=== PATIENT | male | born 2000 | race Two or more races ===

== ENCOUNTER 2019-02-09 13:10 | Emergency (ER) | payer MEDICAID ==
[~2019-02-09] VITALS: Ht 167.6 cm; Wt 59.0 kg
[~2019-02-09 13:10] MED LIST: CALPRATL TP; DIPH12.5EL PO; IBUP600 PO; PRED10 PO; SULTRIDS PO
[2019-02-09] MEDS ORDERED: Bactrim Ds Tab1 EACH PO (14:25)
[2019-02-09] MEDS ORDERED: CEPH500 PO (14:25)
== END 2019-02-09 14:45 | disposition home or self-care (01) ==
LOC: ER 13:10
DX: L02.214 Cutaneous abscess of groin (principal)
CPT/HCPCS: 10060; 99282-25

== ENCOUNTER 2020-02-18 23:43 | Emergency (ER) | payer OTHER ==
[~2020-02-18] VITALS: Ht 162.6 cm; Wt 59.0 kg
[~2020-02-18 23:43] MED LIST changes: +Bactrim Ds Tab1 EACH PO; +CEPH500 PO
[2020-02-19] MEDS ORDERED: Cleocin HCl300 MG PO (00:17)
[2020-02-19] MEDS ORDERED: IBUP600 PO (00:17)
== END 2020-02-19 00:30 | disposition home or self-care (01) ==
LOC: ER 23:43
DX: K02.9 Dental caries, unspecified (principal); Z87.891 Personal history of nicotine dependence
CPT/HCPCS: 96372; 99282; A9270; J1885

== ENCOUNTER 2020-12-11 15:47 | Emergency (ER) | payer OTHER ==
[~2020-12-11] VITALS: Ht 165.1 cm; Wt 64.4 kg
[~2020-12-11 15:47] MED LIST changes: +Cleocin HCl300 MG PO
== END 2020-12-11 17:21 | disposition home or self-care (01) ==
LOC: ER 15:47
DX: S60.212A Contusion of left wrist, initial encounter (principal); Z87.891 Personal history of nicotine dependence; V02.99XA Pedestrian with other conveyance injured in collision with two- or three-wheeled motor vehicle, unspecified whether traffic or nontraffic accident, initial encounter; Y92.410 Unspecified street and highway as the place of occurrence of the external cause
CPT/HCPCS: 29125; 73120; 99283-25; A9270

== ENCOUNTER 2021-02-22 21:53 | Emergency (ER) | payer OTHER ==
[~2021-02-22] VITALS: Ht 162.6 cm; Wt 59.0 kg
== END 2021-02-23 01:49 | disposition left against medical advice (07) ==
LOC: ER 21:53
DX: R56.9 Unspecified convulsions (principal); Z53.21 Procedure and treatment not carried out due to patient leaving prior to being seen by health care provider
CPT/HCPCS: 93005; 93010

== ENCOUNTER 2022-02-18 16:46 | Emergency (ER) | payer OTHER ==
[~2022-02-18] VITALS: Ht 162.6 cm; Wt 59.0 kg
[2022-02-18] MEDS ORDERED: HYDR1TAB94 PO (18:12)
[2022-02-18] MEDS ORDERED: AMOCLA875 PO (18:12)
== END 2022-02-18 18:19 | disposition home or self-care (01) ==
LOC: ER 16:46
DX: K08.89 Other specified disorders of teeth and supporting structures (principal); Z87.891 Personal history of nicotine dependence
CPT/HCPCS: A9270

== ENCOUNTER 2022-04-17 15:39 | Emergency (ER) | payer OTHER ==
[~2022-04-17] VITALS: Ht 162.6 cm; Wt 60.8 kg
[~2022-04-17 15:39] MED LIST changes: +AMOCLA875 PO; +HYDR1TAB94 PO
== END 2022-04-17 16:32 | disposition home or self-care (01) ==
LOC: ER 15:39
DX: S00.01XA Abrasion of scalp, initial encounter (principal); W22.8XXA Striking against or struck by other objects, initial encounter; F17.290 Nicotine dependence, other tobacco product, uncomplicated; Z23 Encounter for immunization
CPT/HCPCS: 90714

== ENCOUNTER 2023-08-25 00:57 | Observation (INO) | payer OTHER ==
[~2023-08-25] VITALS: Ht 160 cm; Wt 61.5 kg
[2023-08-25 02:00] LABS: BASOPHILS ABSOLUTE AUTO 0.06 K/mm3 (0.00-0.23); BASOPHILS PERCENT AUTO 1 % (0-2); EOSINOPHILS ABSOLUTE AUTO 0.13 K/mm3 (0.00-0.68); EOSINOPHILS PERCENT AUTO 1 % (0-6); Hematocrit 46.6 % (37.0-53.0); Hemoglobin 15.4 g/dL (13.5-17.5); IMMATURE GRAN ABSOLUTE AUTO 0.06 K/mm3 (0.00-0.10); IMMATURE GRAN PERCENT AUTO 1 % (0-1); LYMPHOCYTES ABSOLUTE AUTO 2.56 K/mm3 (0.84-5.20); LYMPHOCYTES PERCENT AUTO 25 % (21-46); MONOCYTES ABSOLUTE AUTO 1.01 K/mm3 (0.16-1.47); MONOCYTES PERCENT AUTO 10 % (4-13); Mean Corpuscular HGB 31.4 pg (26.0-34.0); Mean Corpuscular Volume 95 fL (80-100); Mean Platelet Volume 9.7 fL (9.1-12.4); NEUTROPHILS ABSOLUTE AUTO 6.54 K/mm3 (1.96-9.15); NEUTROPHILS PERCENT AUTO 63 % (41-73); Platelet Count 247 K/mm3 (150-400); RDW Coefficient Variation 12.4 % (11.7-14.2); RDW Standard Deviation 43.6 fL (35.1-46.3); Red Blood Cell Count 4.91 M/mm3 (4.30-5.90); White Blood Cell Count 10.36 K/mm3 (4.00-11.30)
[2023-08-25 02:07] LABS: Albumin/Globulin Ratio 1.3 (0.8-1.8); Bilirubin, Total 0.3 mg/dL (0.1-1.0); Bun/Creatinine Ratio 16.8 (12.0-20.0); Calcium, Blood 8.2 mg/dL (8.5-10.1); Creatinine, Blood 0.72 mg/dL (0.60-1.20); Globulin, Blood 3.1 g/dL (2.2-4.0); Magnesium, Blood 2.5 mg/dL (1.6-2.4); Potassium, Blood 3.9 mmol/L (3.5-5.5); Prolactin 9.5 ng/mL (2.5-17.4); Total Protein, Blood 7.1 g/dL (6.4-8.2)
[2023-08-25 02:23] LABS: Source, Urine Clean Catch
[2023-08-25 02:29] LABS: Bilirubin, Urine Neg (Neg); Blood, Urine Neg (Neg); Glucose Qualitative, Urine Neg (Neg); Ketones, Urine Neg (Neg); Leukocyte Esterase, Urine Neg (Neg); Nitrite, Urine Neg (Neg); Protein, Urine Neg (Neg); Urobilinogen, Urine NORM (Normal); pH, Urine 6.5 (5.0-8.0)
[2023-08-25 02:30] LABS: Appearance, Urine Clear (Clear); Color, Urine Yellow (P-Yellow)
[2023-08-25 02:45] LABS: U Amphetamine Screen Not Detected; U Barbituate Screen Not Detected; U Benzodiazapine Screen Not Detected; U Buprenorphine Screen Not Detected; U Cannabinoids Screen DETECTED; U Cocaine Screen Not Detected; U Methadone Screen Not Detected; U Methamphetamine Screen Not Detected; U Opiates Screen Not Detected; U Oxycodone Screen Not Detected; U Phencyclidine Screen Not Detected
[2023-08-25 08:14] VITALS: BP 113/73
[2023-08-25 16:02] VITALS: BP 115/69
--- NOTE | 2023-08-25 16:53 | NUR ---
SHIFT SUMMARY: PATIENT A/OX4, SLOW TO RESPOND AND SOFT SPOKEN WHEN HE TALKS. OTHERWISE, VERY QUITE AND RESSERVED. PATIENT DENIES CP/PRESSURE, SOB, AND DIZZINESS. PATIENT REPORTS HEADACHE AND VOMITING, MEDICATED c PRN NAUSEA MEDS c GOOD EFFECT. PATIENT HAD OT EPISODE OF SEIZURES WITNESS BY PATIENT AUNT AND DR. SANCHEZ NOTIFIED THIS RN. BY THE TIME THIS RN CHECK AND ASSESS THE PATIENT, SEIZURE WAS RESSOLVED. PATIENT IS AWAKE, ALERT AND REPORTS HEADACHE, MEDICATED c PRN IV VALIUM c GOOD EFFECT AND SLEPT FOR ABOUT 2.5 HRS. FEBRILE 101.2 TAKEN TEMPORAL AND WAS RECHECKED ORALLY AND WAS 100.3. PATIENT MEDICATED c PRN PO TYLENOL AND TEMP DOWN TO 98.8. PATIENT RECEIVED ONE DOSE OF IV KEPPRA AND ONE DOSE OF IV VIMPAT THIS SHIFT. PATIENT AUNT (MARISABEL) AT BEDSIDE STAYED c PATIENT MAJORITY OF THIS SHIFT AND VERY INVOLVED ON PATIENT CARE. PER MARISABEL "PATIENT IS GOING THROUGH A LOT OF STRESS AT HOME HE IS BATTLING c KIDS CUSTODY AND A CLOSED RELATIVES ON STAGE 4 CANCER." MARISABEL FILLED OUT AN ADVANCE DIRECTIVE FORMS AND PLACED IN FRONT OF PATIENT CHART. VITAL SIGNS REVIEWED. PIV TO L FOREARM SALINE LOCKED. CALL LIGHT IN REACH
--- NOTE | 2023-08-25 18:08 | NUR ---
NOTE: PATIENT HAS BEEN DENYING CP/PRESSURE ALL DAY. AT AROUND 1810, PATIENT AUNT (MARISABEL) AT BEDSIDE, REPORTS TO THIS RN THAT PATIENT IS HAVING CP AND REQUESTING TO PLACED PATIENT ON TELEMETRY TO MONITOR HIS HR. THIS RN ASSESS THE PATIENT AND TO DESCRIBED THE PAIN LIKE. PATIENT COULD NOT TELL THIS RN ANY WORDS. VITAL SIGNS TAKEN; BP 112/71, HR 91 BPM, RR 19 BPM, O2 95% AND TEMP OF 99.6. THE PATIENT AUNT AT BEDSIDE DOES ALL THE TALKING AND REPORTS ALL THE PATIENT SYMPTOMS. PATIENT IS AWAKE AND LAYING IN BED. THIS RN NOTIFIED DR. SANCHEZ REGARDING THIS CONCERNED. DR SANCHEZ CAME SAW THE PATIENT AND SPOKE TO AUNT AT BEDSIDE. 10 MINS LATER, THIS RN WAS NOTIFIED BY [employer] ED[employer] PER FAMILY MEMBER PATIENT HAD ANOTHER EPISODE OF SIEZURE, BY THE TIME THIS RN MADE IT TO PATIENT ROOM PATIENT SEIZURE WAS RESSOLVED. PATIENT AUNT IS REQUESTING TO HAVE A SECOND OPINION AND REQUESTING TO THIS RN TO TRANSFERRED PATIENT TO DIFFERENT HOSPITAL. NOTIFIED DR. SANCHEZ c THIS REQUEST. DR SANHCEZ CAME BACK AND SPOKE TO PATIENT AUNT IN ROOM AND CLARIFIED THE REQUEST. PER DR. SANCHEZ TO FAMILY MEMBER HE WILL START THE PROCESS.
[2023-08-25 18:13] VITALS: BP 112/71
[2023-08-25 20:11] VITALS: BP 118/62
[2023-08-25 20:33] VITALS: BP 118/62
--- NOTE | 2023-08-26 05:26 | NUR ---
SHIFT SUMMARY/XFER THA WAS ALERT AND FULLY ORIENTED AT THE START OF THE SHIFT AND WITH FAMILY. PRIOR TO THIS SHIFT PT HAD REQUESTED TRANSFER TO ANOTHER HOSPITAL. AT TIME OF ASSESSMENT PT DENIED C/P/PRESSURE, AND SOB. PT WAS UNDER MY CARE UNTIL 2319 WHEN HE GOT PICKED UP AND TRANSFERRED TO [facility]. WHILE UNDER MY CARE PT HAD NO SEIZURES, CHANGES IN CONDITION, OR ACUTE EVENTS. REPORT CALLED TO VIET @ [facility].
== END 2023-08-25 23:24 | disposition short-term general hospital (02) ==
LOC: ER 00:57 → MEDS 00:58
PROVIDERS: Student in an Organized Health Care Education/Training Program; ADMIT Internal Medicine
DX: R56.9 Unspecified convulsions (principal); G43.909 Migraine, unspecified, not intractable, without status migrainosus; Z72.0 Tobacco use; G93.0 Cerebral cysts
CPT/HCPCS: 70450; 70553; 80053; 81003; 82947; 83735; 84146; 85025; 93005; 93010; 96365-59; 96366; 96372; 96375; 96375-59; 96376; 99285-25; A9270; A9579; C9254; G0378; J1650; J1885; J1953; J2405; J2765; J3360

== ENCOUNTER 2024-06-15 12:54 | Emergency (ER) | payer OTHER ==
[~2024-06-15] VITALS: Ht 170.2 cm; Wt 68.0 kg
[~2024-06-15 12:54] MED LIST changes: +LEVE500 PO
[2024-06-15 12:59] VITALS: BP 119/69
[2024-06-15] MEDS ORDERED: Bactrim Ds Tab1 EACH PO (13:20)
[2024-06-15] MEDS ORDERED: CEPH500 PO (13:20)
[2024-06-15] MEDS ORDERED: PROM25 PO (13:20)
== END 2024-06-15 13:28 | disposition home or self-care (01) ==
LOC: ER 12:54
DX: L08.9 Local infection of the skin and subcutaneous tissue, unspecified (principal); R11.2 Nausea with vomiting, unspecified; Z79.899 Other long term (current) drug therapy
CPT/HCPCS: 99283

== ENCOUNTER 2024-06-24 14:40 | Emergency (ER) | payer OTHER ==
[~2024-06-24] VITALS: Ht 160 cm; Wt 56.7 kg
[~2024-06-24 14:40] MED LIST changes: +PROM25 PO
[2024-06-24 14:56] VITALS: BP 120/96
[2024-06-24] MEDS ORDERED: Tetanus,Diphtheria Toxd Ped/Pf 0.5 ML VIAL IM ONE (16:35)
[2024-06-24] MEDS ORDERED: Tetanus and Diphtheria Toxoid 0.5 ML INJ IM ONE (16:45)
== END 2024-06-24 17:15 | disposition home or self-care (01) ==
LOC: ER 14:40
DX: M79.641 Pain in right hand (principal); Z79.899 Other long term (current) drug therapy
CPT/HCPCS: 70450; 73000; 73130; 73140; 90471; 90702; 90714; 99283-25

== ENCOUNTER 2024-09-10 01:43 | Emergency (ER) | payer OTHER ==
[~2024-09-10] VITALS: Ht 162.6 cm; Wt 54.4 kg
[2024-09-10] MEDS ORDERED: NS 1,000 ML IV SCH (01:55)
[2024-09-10 02:37] LABS: BASOPHILS ABSOLUTE AUTO 0.06 K/mm3 (0.00-0.23); BASOPHILS PERCENT AUTO 1 % (0-2); EOSINOPHILS ABSOLUTE AUTO 0.05 K/mm3 (0.00-0.68); EOSINOPHILS PERCENT AUTO 1 % (0-6); Hematocrit 47.2 % (37.0-53.0); Hemoglobin 16.3 g/dL (13.5-17.5); IMMATURE GRAN ABSOLUTE AUTO 0.02 K/mm3 (0.00-0.10); IMMATURE GRAN PERCENT AUTO 0 % (0-1); LYMPHOCYTES ABSOLUTE AUTO 2.19 K/mm3 (0.84-5.20); LYMPHOCYTES PERCENT AUTO 33 % (21-46); MONOCYTES ABSOLUTE AUTO 0.42 K/mm3 (0.16-1.47); MONOCYTES PERCENT AUTO 6 % (4-13); Mean Corpuscular HGB 31.7 pg (26.0-34.0); Mean Corpuscular HGB Conc 34.5 g/dL (31.5-36.5); Mean Corpuscular Volume 92 fL (80-100); Mean Platelet Volume 9.4 fL (9.1-12.4); NEUTROPHILS ABSOLUTE AUTO 3.95 K/mm3 (1.96-9.15); NEUTROPHILS PERCENT AUTO 59 % (41-73); Platelet Count 284 K/mm3 (150-400); RDW Coefficient Variation 13.2 % (11.7-14.2); RDW Standard Deviation 44.8 fL (35.1-46.3); Red Blood Cell Count 5.15 M/mm3 (4.30-5.90); White Blood Cell Count 6.69 K/mm3 (4.00-11.30)
[2024-09-10 02:38] LABS: Albumin, Blood 4.2 g/dL (3.4-5.0); Albumin/Globulin Ratio 1.1 (0.8-1.8); Bilirubin, Total 0.4 mg/dL (0.1-1.0); Bun/Creatinine Ratio 9.6 (12.0-20.0); Calcium, Blood 8.8 mg/dL (8.5-10.1); Creatinine, Blood 0.83 mg/dL (0.60-1.20); Globulin, Blood 3.7 g/dL (2.2-4.0); Magnesium, Blood 2.4 mg/dL (1.6-2.4); Total Protein, Blood 7.9 g/dL (6.4-8.2)
[2024-09-10 02:45] VITALS: BP 100/80
[2024-09-10 03:14] LABS: U Amphetamine Screen Not Detected; U Barbituate Screen Not Detected; U Benzodiazapine Screen Not Detected; U Buprenorphine Screen Not Detected; U Cannabinoids Screen DETECTED; U Cocaine Screen Not Detected; U Methadone Screen Not Detected; U Methamphetamine Screen Not Detected; U Opiates Screen Not Detected; U Oxycodone Screen Not Detected; U Phencyclidine Screen Not Detected
== END 2024-09-10 03:19 | disposition home or self-care (01) ==
LOC: ER 01:43
PROVIDERS: Emergency Medicine
DX: F10.129 Alcohol abuse with intoxication, unspecified (principal); Z79.899 Other long term (current) drug therapy
CPT/HCPCS: 80053; 80320; 83605; 83735; 85025; 96360; 99284-25; J7030

== ENCOUNTER 2025-08-05 11:53 | Emergency (ER) | payer OTHER ==
[~2025-08-05] VITALS: Ht 162.6 cm; Wt 63.5 kg
[2025-08-05 14:09] VITALS: BP 140/74
[2025-08-05] MEDS ORDERED: LEVE500 PO (14:09)
== END 2025-08-05 14:20 | disposition home or self-care (01) ==
LOC: ER 11:53
DX: G40.909 Epilepsy, unspecified, not intractable, without status epilepticus (principal); T42.6X6A Underdosing of other antiepileptic and sedative-hypnotic drugs, initial encounter; Z91.148 Patient's other noncompliance with medication regimen for other reason
CPT/HCPCS: 99283; A9270